=== PATIENT | female | born 1955 | race Caucasian/White ===

== ENCOUNTER → 2022-06-19 | Outpatient (CLI) | payer MEDICARE, OTHER ==
[~2022-06-19] MED LIST: ELDE350C PO; FLUO40CA PO; LEVO2TA PO; METF-838 PO; SIMV20TA22 PO; TURM500T PO; VITMTA PO
== END ==
LOC: M LABSMTC 10:38
PROVIDERS: ATTEND Anesthesiology
DX: Z01.812 Encounter for preprocedural laboratory examination (principal); Z20.822 Contact with and (suspected) exposure to COVID-19

== ENCOUNTER 2022-06-24 06:11 | Day surgery (SDC) | payer MEDICARE ==
[~2022-06-24] VITALS: Ht 160 cm; Wt 90.7 kg
[~2022-06-24 06:11] MED LIST changes: +ceFAZolin SOD 2 GM in IV 1 EA IV ONE
[2022-06-24] MEDS ORDERED: TETRACAINE 0.5% OPHTH SOLN 4ML As Ordered ONE (07:16)
[2022-06-24] MEDS ORDERED: LIDOCAINE 2% W/EPINEPHRINE 20ML VIAL **PRES FREE As Ordered ONE (07:16)
[2022-06-24] MEDS ORDERED: POLYSPORIN OPHTH OINT 3.5 GM As Ordered ONE (07:16)
[2022-06-24] MEDS ORDERED: POVIDONE-IODINE 5% OPHTH PREP SOL 30ML As Ordered ONE (07:18)
[2022-06-24] MEDS ORDERED: propofoL 200 MG/20 ML VIAL As Ordered ONE (07:29)
[2022-06-24] MEDS ORDERED: LIDOCAINE 2% 100MG/5ML SDV (FOR ANES.) As Ordered ONE (07:29)
[2022-06-24] MEDS ORDERED: ONDANSETRON 4MG 2ML VIAL As Ordered ONE (07:29)
[2022-06-24] MEDS ORDERED: fentaNYL 100 MCG/2 ML INJECTION As Ordered ONE (07:29)
[2022-06-24] MEDS ORDERED: MIDAZOLAM INJ 2MG/2ML VIAL As Ordered ONE (07:29)
[2022-06-24] MEDS ORDERED: ePHEDrine SULFATE 25 MG/5 ML(5MG/ML) SYRINGE As Ordered ONE (08:03)
[2022-06-24 09:04] VITALS: BP 141/71
== END 2022-06-24 09:49 | disposition home or self-care (01) ==
LOC: M SDC 06:11
PROVIDERS: ATTEND Plastic Surgery Surgery of the Hand
DX: L72.0 Epidermal cyst (principal); E11.65 Type 2 diabetes mellitus with hyperglycemia; E55.9 Vitamin D deficiency, unspecified; E03.9 Hypothyroidism, unspecified; E78.00 Pure hypercholesterolemia, unspecified; F17.200 Nicotine dependence, unspecified, uncomplicated; Z79.84 Long term (current) use of oral hypoglycemic drugs; Z79.899 Other long term (current) drug therapy
CPT/HCPCS: 67840; 88305; J2405; Q4104